=== PATIENT | female | born 1950 | race Caucasian/White ===

== ENCOUNTER → 2017-06-12 | Outpatient (CLI) | payer OTHER | LOC: CIMAGING 14:14 | DX: Z12.31 Encounter for screening mammogram for malignant neoplasm of breast (principal) | CPT/HCPCS: G0202 ==

== ENCOUNTER → 2017-06-20 | Outpatient (CLI) | payer OTHER | LOC: CIMAGING 12:57 | PROVIDERS: ATTEND Internal Medicine | DX: Z12.39 Encounter for other screening for malignant neoplasm of breast (principal); R92.8 Other abnormal and inconclusive findings on diagnostic imaging of breast | CPT/HCPCS: 76641; G0206 ==

== ENCOUNTER → 2017-12-22 | Outpatient (CLI) | payer OTHER | LOC: CIMAGING 12:52 | PROVIDERS: ATTEND Internal Medicine | DX: R92.8 Other abnormal and inconclusive findings on diagnostic imaging of breast (principal) | CPT/HCPCS: 76641-PO ==

== ENCOUNTER → 2018-06-13 | Outpatient (CLI) | payer OTHER | DX: Z12.31 Encounter for screening mammogram for malignant neoplasm of breast (principal) ==

== ENCOUNTER → 2018-06-22 | Outpatient (CLI) | payer OTHER | LOC: CIMAGING 13:30 | PROVIDERS: ATTEND Internal Medicine | DX: N63.14 Unspecified lump in the right breast, lower inner quadrant (principal) | CPT/HCPCS: 76641-PO ==

== ENCOUNTER → 2018-07-16 | Outpatient (CLI) | payer OTHER ==
[~2018-07-16] MED LIST: BUPIVACAINE 0.5% 30 ML SDV ONE; LIDOCAINE 1% 300 MG/30 ML SDV ONE; THROMBIN (BOVINE) 5,000 UNIT VIAL TP ONE
== END ==
LOC: FIMAGING 07:18
PROVIDERS: ATTEND Internal Medicine
PROC: 0HBT3ZX Excision of Right Breast, Percutaneous Approach, Diagnostic (ICD-10-PCS; principal; 2018-07-16)
DX: D05.11 Intraductal carcinoma in situ of right breast (principal)

== ENCOUNTER 2018-08-09 06:27 | Day surgery (SDC) | payer OTHER ==
[2018-08-09] MEDS ORDERED: ceFAZolin 2 GM/DEXTROSE 100 ML IV ONE (06:55)
[2018-08-09] MEDS ORDERED: LR 1,000 ML IV ONE (06:56)
[2018-08-09] MEDS ORDERED: LIDOCAINE 1% 300 MG/30 ML SDV ONE (07:34)
[2018-08-09] MEDS ORDERED: CEFAZOLIN 2 GM/DEXTROSE/100 ML BAG IV ONE (09:39)
[2018-08-09] MEDS ORDERED: BUPIVACAINE 0.5% 30 ML SDV ONE (09:52)
[2018-08-09] MEDS ORDERED: THROMBIN (BOVINE) 5,000 UNIT VIAL TP ONE (09:52)
--- NOTE | 2018-08-09 10:25 | PDHPUP ---
History & Physical Update H&P update statement: This history and physical update is based on an assessment of the patient which was completed after admission or registration (within 24 hours), but prior to the surgery/procedure. H&P update: H&P reviewed & patient examined, no change in patient's condition since H&P completed
[2018-08-09] MEDS ORDERED: MIDAZOLAM 2 MG/2 ML VIAL ONE (10:39)
[2018-08-09] MEDS ORDERED: MIDAZOLAM 2 MG/2 ML VIAL IVP ONE (10:39)
--- NOTE | 2018-08-09 10:46 | PDANEPAE ---
ANE History of Present Illness Right breast lumpectomy ANE Past Medical History - Cardiovascular History Hx Hypertension: Yes Hx Arrhythmias: No Hx Chest Pain: No Hx Coronary Artery / Peripheral Vascular Disease: No Hx CHF / Valvular Disease: No Hx Palpitations: No - Pulmonary History Hx COPD: No Hx Asthma/Reactive Airway Disease: No Hx Recent Upper Respiratory Infection: No Hx Oxygen in Use at Home: No Hx Sleep Apnea: No Sleep Apnea Screening Result - Last Documented: Negative - Neurologic History Hx Cerebrovascular Accident: No Hx Seizures: No Hx Dementia: No - Endocrine History Hx Diabetes: No - Renal History Hx Renal Disorders: No - Liver History Hx Hepatic Disorders: No - Neurological & Psychiatric Hx Hx Neurological and Psychiatric Disorders: No - Cancer History Hx Cancer: Yes Cancer History Comment: Rt Breast CA - Congenital Disorder History Hx Congenital Disorders: No - GI History Hx Gastrointestinal Disorders: No - Other Health History Other Health History: wears glasses. osteoarthritis - Chronic Pain History Chronic Pain: No - Surgical History Prior Surgeries: right TKA, 2012. left TKA, 2010. hysterectomy, 1999 ANE Review of Systems Review of systems is: negative Review of Systems: - Exercise capacity METS (RN): 5 METS ANE Patient History - Allergies Allergies/Adverse Reactions: azithromycin Allergy (Verified 08/07/18 14:17) Itching, hives - Home Medications Home Medications: Levothyroxine [Synthroid 137 mcg (RX)] 01/20/12 [Last Taken 08/09/18 05:00] Lisinopril [Zestril 20 mg] 01/20/12 [Last Taken 08/09/18 05:00] Turmeric 08/07/18 [Last Taken 08/07/18] - NPO status NPO Status: no food or drink >8 hours NPO Since - Liquids (Date): 08/09/18 NPO Since - Liquids (Time): 06:00 NPO Since - Solids (Date): 08/08/18 NPO Since - Solids (Time): 19:00 - Anes Hx Anes Hx: post operative nausea - Smoking Hx Smoking Status: Never smoked - Family Anes Hx Family Anes Hx: none Family Hx Anesthesia Complications: none ANE Labs/Vital Signs - Vital Signs Blood Pressure: 119/76 Heart Rate: 79 Respiratory Rate: 12 O2 Sat (%): 93 Height: 160.02 cm Weight: 79.379 kg ANE Physical Exam - Airway Neck exam: decreased ROM Mallampati Score: Class 2 Mouth exam: normal dental/mouth exam - Pulmonary Pulmonary: no respiratory distress, no rales or rhonchi - Cardiovascular Cardiovascular: regular rate and rhythym, no murmur, rub, or gallop - ASA Status ASA Status: II ANE Anesthesia Plan Anesthesia Plan: GA w LMA
[2018-08-09] MEDS ORDERED: fentaNYL 100 MCG/2 ML INJ ONE ×3 (10:50→12:22)
[2018-08-09] MEDS ORDERED: PROPOFOL 200 MG/20 ML VIAL ONE (10:50)
[2018-08-09] MEDS ORDERED: PROPOFOL/EMULSION 500 MG/50 ML BOTTLE IV ONE (10:51)
[2018-08-09] MEDS ORDERED: LIDOCAINE 2% 2 ML INJ ONE ×2 (10:52)
[2018-08-09] MEDS ORDERED: NA BICARBONATE 50 MEQ/50 ML VIAL ONE (10:59)
[2018-08-09] MEDS ORDERED: PHENYLEPHRINE HCL 100 MCG/ML SYR ONE (11:13)
[2018-08-09] MEDS ORDERED: HYDROmorphONE/DILAUDID 2 MG/ML INJ IVP PRN (11:32)
[2018-08-09] MEDS ORDERED: oxyCODONE IR 5 MG TAB PO PRN (11:32)
[2018-08-09] MEDS ORDERED: ACETAMINOPHEN 500 MG TAB PO PRN (11:32)
[2018-08-09] MEDS ORDERED: HYDROCODONE/APAP 5/325 TAB PO PRN ×2 (11:32→13:32)
[2018-08-09] MEDS ORDERED: NALOXONE HCL 0.4 MG/ML INJ IVP PRN (11:32)
[2018-08-09] MEDS ORDERED: METOCLOPRAMIDE 10 MG/2 ML VIAL IVP PRN (11:32)
[2018-08-09] MEDS ORDERED: ALBUTEROL 3 ML DEYVIAL IH PRN (11:32)
[2018-08-09] MEDS ORDERED: ONDANSETRON 4 MG/2 ML VIAL ONE (11:53)
[2018-08-09] MEDS: fentaNYL 100 MCG/2 ML INJ IVP PRN ×2 (12:30→12:43)
--- NOTE | 2018-08-09 12:35 | POSTOPPROG ---
Post Op Note Date of Operation: 08/09/18 Surgeon: Cristhian Wright Anesthesiologist: KAVEH Anesthesia: GET(General Endotracheal) Pre-op Diagnosis: RIGHT BREAST CANCER Post-op Diagnosis: SAME Indication: CANCER Procedure: NL LUMPECTOMY WITH FIDUCIAL PLACEMWNT AND SENTINEL NODE BX Findings: NEGATIVE NODER/ TARGET IN SPECIMEN Inf/Abcess present in the surg proc area at time of surgery?: No Depth: Deep Incisional (Fascial) EBL: Minimal Complications: 0 Specimen(s): 3 NODES/ RIGHT LUMPECTOMY/ 3 ADDITIONAL MARGINS
[2018-08-09] MEDS ORDERED: OXYCODONE/APAP 5/325 TAB ONE (13:28)
[2018-08-09] MEDS ORDERED: OXYCODONE/APAP 5/325 TAB PO ONE (13:51)
[2018-08-09 14:41] VITALS: BP 110/66
--- NOTE | 2018-08-09 15:43 | POSTANESTH ---
Post Anesthetic Evaluation Cardiovascular Status: Normal, Stable Respiratory Status: Normal, Stable Level of Consciousness/Mental Status: Can Participate in Eval Pain Control: Adequate, Prn Tx Ordered Nausea/Vomiting Control: Adequate, Prn Tx Ordered Complications Possibly Related to Anesthesia: None Noted (Dc to home)
--- NOTE | 2018-08-12 14:44 | GOP ---
DATE OF OPERATION: 08/09/2018 SURGEON: Cristhian Wright MD PREOPERATIVE DIAGNOSIS: Right breast cancer. POSTOPERATIVE DIAGNOSIS: Right breast cancer. PROCEDURE PERFORMED: Right needle localization lumpectomy with sentinel node biopsy. FINDINGS: The patient was found to have 3 negative sentinel nodes. The sentinel node indicator was rather weak, so multiple nodes were sent out with no other suspicious palpable nodes remained in the axilla. The target was included in the specimen. DESCRIPTION OF PROCEDURE: The patient was to the operating room where she received satisfactory gene ral endotracheal anesthesia. She was placed in supine position with the right arm outstretched on an arm board. She was prepped and draped in the usual sterile fashion. An incision was made along the base of the axilla. Dissection extended down using a gamma probe, the sentinel nodes were identified. They were not overly hot on gamma evaluation. 3 nodes were dissect ed free and removed and sent for frozen section, and all 3 were returned as negative. The wound was infiltrated with 0.5% Marcaine and some topical thrombin was placed in the wound. Hemostasis was ass ured. The wound was then closed with 3-0 Vicryl for the subcutaneous tissue and 4-0 Monocryl subcuti cular stitch for the skin. Attention was turned to the needle localization site. A transverse incision was made. Dissection ex tended down along the needle track. A generous excisional biopsy was taken around the mass in the he matoma cavity and complete excision was done. The specimen was sent to x-ray and confirmed to contai n the clip in the hematoma cavity. Additional margins were then taken inferiorly, superiorly, medial ly, and posteriorly and sent out separately and labeled separately. The wound was then irrigated. H emostasis was assured. It was infiltrated with 0.5% Marcaine. Some hemoclips were placed for future reference for radiation therapy, and the wounds were closed in layers in a mammoplastic technique wi th 3-0 Vicryl. Skin was closed with 4-0 Monocryl subcuticular stitch. All wounds were infiltrated w ith 0.5% Marcaine. She tolerated the procedure well, taken to recovery room in good condition. Ther e were no complications and appropriate . /[id number]/MODL
== END 2018-08-09 14:30 | disposition home or self-care (01) ==
LOC: FSGY 06:27
PROVIDERS: ATTEND Surgery
PROC: 07B50ZX Excision of Right Axillary Lymphatic, Open Approach, Diagnostic (ICD-10-PCS; principal; 2018-08-09 10:45)
PROC: 0HBT0ZZ Excision of Right Breast, Open Approach (ICD-10-PCS; principal; 2018-08-09 10:45)
DX: C50.911 Malignant neoplasm of unspecified site of right female breast (principal); I10 Essential (primary) hypertension; E03.9 Hypothyroidism, unspecified; M19.91 Primary osteoarthritis, unspecified site
CPT/HCPCS: 19301; 38500; 76098; 78195; A9520; J0690; J2250; J2370; J2405; J2704; J3010

== ENCOUNTER → 2018-12-17 | Outpatient (CLI) | payer OTHER | LOC: FIMAGING 14:00 | PROVIDERS: ATTEND Surgery | DX: N60.31 Fibrosclerosis of right breast (principal); Z85.3 Personal history of malignant neoplasm of breast ==